=== PATIENT | female | born 1955 | race Caucasian/White ===

== ENCOUNTER 2020-10-02 09:41 | Inpatient (IN) ==
[2020-10-02] MEDS ORDERED: NS 0.9% 1000 ml BAG 1,000 ML IV ONE ×2 (10:36→12:07)
[2020-10-02] MEDS ORDERED: Morphine 4 MG/ML VIAL (1 ml) IV ONE (11:08)
[2020-10-02 11:11] LABS: ABS Lymphocytes 0.6 10^3/ul (1.0-4.8); ABS Monocytes 0.3 10^3/ul (0-0.8); ABS Neutrophils 9.2 10^3/ul (1.5-7.7); Eosinophil % 0.3 %; Hematocrit 38 % (35-47); Hemoglobin 12.9 g/dL (12.0-16.0); Mean Corpuscular HGB Conc 35 g/dL (31-36); Mean Corpuscular Hemoglobin 32 pg (27-31); Mean Corpuscular Volume 92 fL (80-97); Mean Platelet Volume 7.2 fL (7.4-10.4); Nucleated Red Blood Cells % 0.1; Platelet Count 187 10^3/uL (150-450); Red Cell Distribution Width 13 % (10-15); White Blood Count 10.1 10^3/uL (3.5-10.8)
[2020-10-02 11:26] LABS: Activated Partial Thrombo Time 26.3 seconds (26.0-38.0); INR 1.03 (0.82-1.09)
[2020-10-02 11:59] LABS: Albumin 3.8 g/dL (3.2-5.2); Albumin/Globulin Ratio 1.5 (1-3); Calcium 8.8 mg/dL (8.6-10.3); EGFR African American 98.1 (>60); Globulin 2.6 g/dL (2-4); Magnesium 1.4 mg/dL (1.9-2.7); Potassium 4.2 mmol/L (3.5-5.0); Total Bilirubin 0.6 mg/dL (0.2-1.0); Total Protein 6.4 g/dL (6.4-8.9)
[2020-10-02] MEDS ORDERED: Magnesium Sulfate 2 gm BAG 2 GM/50 ML BAG IVPB ONE (12:07)
[2020-10-02] MEDS ORDERED: Dextrose 50% Syringe 50 ml 25 GM/50 ML SYRINGE IV PUSH PRN (13:09)
[2020-10-02] MEDS ORDERED: Senna TAB 8.6 mg TAB PO PRN (13:11)
[2020-10-02] MEDS ORDERED: Polyethylene Glycol 3350 17 GM PACKET PO PRN (13:11)
[2020-10-02] MEDS: oxyCODONE/Acetamin 5/325 mg TAB PO PRN (17:44)
[2020-10-02] MEDS: Insulin GLARGINE 100 un/ml 10 ml VIAL SUBCUT SCH (20:50)
[2020-10-03] MEDS: oxyCODONE/Acetamin 5/325 mg TAB PO PRN ×2 (01:41→20:49)
[2020-10-03 05:39] LABS: Hematocrit 35 % (35-47); Hemoglobin 12.5 g/dL (12.0-16.0); Mean Corpuscular HGB Conc 35 g/dL (31-36); Mean Corpuscular Hemoglobin 32 pg (27-31); Mean Corpuscular Volume 91 fL (80-97); Mean Platelet Volume 7.3 fL (7.4-10.4); Platelet Count 163 10^3/uL (150-450); Red Blood Count 3.87 10^6 /uL (3.70-4.87); Red Cell Distribution Width 13 % (10-15); White Blood Count 9.9 10^3/uL (3.5-10.8)
[2020-10-03 05:44] LABS: INR 1.08 (0.82-1.09)
[2020-10-03 05:50] LABS: Calcium 8.4 mg/dL (8.6-10.3); Magnesium 1.6 mg/dL (1.9-2.7); Potassium 3.7 mmol/L (3.5-5.0)
[2020-10-03] MEDS ORDERED: Buffered Lidocaine 1% SYRIN 1 ml INTRADERM ONE (06:00)
[2020-10-03] MEDS: Lactated Ringers 1000 ml BAG 1,000 ML IV SCH ×2 (06:27→20:29)
[2020-10-03] MEDS ORDERED: fentaNYL 100 mcg/2 ml 50 MCG/ML VIAL ONE (07:30)
[2020-10-03] MEDS ORDERED: Ondansetron 4 mg VIAL 2 MG/ML 2 ml VIAL ONE (07:30)
[2020-10-03] MEDS ORDERED: Propofol 10 MG/ML 20 ML BTL ONE (07:30)
[2020-10-03] MEDS ORDERED: Glycopyrrolate IV 0.2 MG/ML 1 ML VIAL ONE (07:30)
[2020-10-03] MEDS ORDERED: Midazolam 2 mg/2 ml VIAL 1 mg/ml 2 ml VIAL (2 mg) ONE (07:30)
[2020-10-03] MEDS ORDERED: Phenylephrine IV 10 MG/ML 1 ml VIAL ONE (07:31)
[2020-10-03] MEDS ORDERED: Lidocaine 2% PF 5 ML VIAL ONE (07:33)
[2020-10-03] MEDS ORDERED: Bupivacaine 0.5% SDV PF 30ML VIAL ONE (08:07)
[2020-10-03] MEDS ORDERED: Lidocaine 1% w EPI 1:100,000 MDV 20 ML VIAL ONE (08:07)
[2020-10-03] MEDS ORDERED: Naloxone 0.4 mg VIAL 0.4 mg/ml 1 ml VIAL IV PRN (08:12)
[2020-10-03] MEDS ORDERED: Prochlorperazine 5 mg/ml 2 ml VIAL (10 mg) IV PRN (08:12)
[2020-10-03] MEDS ORDERED: diPHENhydraMINE IV 50 MG/ML 1 ml VIAL (BENADRYL) IV PRN (08:12)
[2020-10-03] MEDS ORDERED: ceFAZolin 2 GM PREMIX 2 GM/50 ML BAG ONE (08:15)
[2020-10-03] MEDS ORDERED: HYDROmorphone 0.5 MG/0.5 ML SYRINGE ONE (08:29)
[2020-10-03] MEDS ORDERED: HYDROmorphone 1 MG/1 ML SYRINGE IV PRN (08:30)
[2020-10-03] MEDS ORDERED: Rocuronium 50 mg VIAL 10 mg/ml 5 ml VIAL (50 mg) ONE (08:52)
[2020-10-03] MEDS ORDERED: Acetaminophen IV 1 GM/100ML 100 ML ONE (09:30)
[2020-10-03] MEDS ORDERED: Enoxaparin 40 MG/0.4 ML SYR SUBCUT SCH (13:00)
[2020-10-03] MEDS: Insulin GLARGINE 100 un/ml 10 ml VIAL SUBCUT SCH ×2 (13:55→21:21)
[2020-10-03] MEDS: ceFAZolin 1 GM X 3 DOSES POST-OP Q8H (AddVan) IVPB SCH (16:46)
[2020-10-03] MEDS: Enoxaparin 40 MG/0.4 ML SYR SUBCUT SCH (20:50)
[2020-10-04] MEDS: ceFAZolin 1 GM X 3 DOSES POST-OP Q8H (AddVan) IVPB SCH ×2 (01:41→08:47)
[2020-10-04] MEDS: Lactated Ringers 1000 ml BAG 1,000 ML IV SCH (04:41)
[2020-10-04 05:17] LABS: Hematocrit 30 % (35-47); Hemoglobin 10.4 g/dL (12.0-16.0)
[2020-10-04 05:35] LABS: EGFR African American 128.4 (>60); EGFR Non-African American 106.1 (>60); Potassium 3.9 mmol/L (3.5-5.0)
[2020-10-04] MEDS: Insulin GLARGINE 100 un/ml 10 ml VIAL SUBCUT SCH (08:45)
[2020-10-04] MEDS ORDERED: Insulin GLARGINE 100 un/ml 10 ml VIAL SUBCUT SCH (21:00)
[2020-10-04] MEDS: Enoxaparin 40 MG/0.4 ML SYR SUBCUT SCH (21:04)
[2020-10-05] MEDS ORDERED: Insulin GLARGINE 100 un/ml 10 ml VIAL SUBCUT SCH (09:00)
[2020-10-05 11:11] VITALS: BP 122/68
[2020-10-05 14:28] LABS: Urine Appearance Clear; Urine Bilirubin Negative (Negative); Urine Blood 1+ (Negative); Urine Color Yellow; Urine Glucose 3+(>=500 mg/dL) (Negative); Urine Ketones 1+ (Negative); Urine Nitrite Negative (Negative); Urine Protein Negative (Negative); Urine Specific Gravity 1.022 (1.002-1.030); Urine Urobilinogen Negative (Negative)
[2020-10-05 15:09] LABS: Urine Bacteria Absent (Absent); Urine Red Blood Cell Trace(0-2/hpf) (Absent); Urine Squamous Epithelial Cell Present (Absent); Urine White Blood Cell Trace(0-5/hpf) (Absent)
[2020-10-06] MEDS ORDERED: Scopolamine PATCH Remove NOTE PATCH OFF ONE ×2 (06:00→08:31)
== END 2020-10-05 13:57 | DRG 522 ==
LOC: ED 09:41 → SSU 13:05
PROVIDERS: ADMIT Hospitalist; ATTEND Internal Medicine

== ENCOUNTER 2020-10-05 15:39 | Inpatient (IN) ==
[2020-10-05] MEDS ORDERED: Dextrose 50% Syringe 50 ml 25 GM/50 ML SYRINGE IV PUSH PRN (17:55)
[2020-10-05] MEDS: Insulin GLARGINE 100 un/ml 10 ml VIAL SUBCUT SCH (21:31)
[2020-10-05] MEDS: Enoxaparin 40 MG/0.4 ML SYR SUBCUT SCH (21:33)
[2020-10-06 06:36] LABS: ABS Eosinophils 0.1 10^3/ul (0-0.6); ABS Lymphocytes 0.7 10^3/ul (1.0-4.8); ABS Monocytes 0.7 10^3/ul (0-0.8); ABS Neutrophils 6.9 10^3/ul (1.5-7.7); Eosinophil % 0.9 %; Hematocrit 27 % (35-47); Hemoglobin 9.3 g/dL (12.0-16.0); Lymphocyte % 8.1 %; Mean Corpuscular HGB Conc 35 g/dL (31-36); Mean Corpuscular Hemoglobin 32 pg (27-31); Mean Corpuscular Volume 92 fL (80-97); Mean Platelet Volume 8.1 fL (7.4-10.4); Platelet Count 141 10^3/uL (150-450); Red Cell Distribution Width 13 % (10-15); White Blood Count 8.3 10^3/uL (3.5-10.8)
[2020-10-06 06:52] LABS: Albumin/Globulin Ratio 1.1 (1-3); Calcium 8.4 mg/dL (8.6-10.3); EGFR African American 133.8 (>60); EGFR Non-African American 110.6 (>60); Globulin 2.7 g/dL (2-4); Potassium 3.6 mmol/L (3.5-5.0); Total Bilirubin 0.7 mg/dL (0.2-1.0); Total Protein 5.7 g/dL (6.4-8.9)
[2020-10-06] MEDS: Insulin GLARGINE 100 un/ml 10 ml VIAL SUBCUT SCH ×2 (08:10→21:50)
[2020-10-06] MEDS: diPHENhydraMINE 25 mg TAB PO SCH (20:47)
[2020-10-06] MEDS: HYDROcodone/ACETAMIN 5/325 mg TAB PO PRN (20:48)
[2020-10-06] MEDS: Enoxaparin 40 MG/0.4 ML SYR SUBCUT SCH (21:45)
[2020-10-07] MEDS: Insulin GLARGINE 100 un/ml 10 ml VIAL SUBCUT SCH ×2 (08:15→21:56)
[2020-10-07] MEDS: HYDROcodone/ACETAMIN 5/325 mg TAB PO PRN ×3 (08:16→19:46)
[2020-10-07] MEDS: diPHENhydraMINE 25 mg TAB PO SCH (21:56)
[2020-10-07] MEDS: Enoxaparin 40 MG/0.4 ML SYR SUBCUT SCH (21:57)
[2020-10-08] MEDS: HYDROcodone/ACETAMIN 5/325 mg TAB PO PRN ×5 (01:59→21:34)
[2020-10-08] MEDS: Insulin GLARGINE 100 un/ml 10 ml VIAL SUBCUT SCH ×2 (10:04→20:46)
[2020-10-08] MEDS: diPHENhydraMINE 25 mg TAB PO SCH (20:45)
[2020-10-08] MEDS: Enoxaparin 40 MG/0.4 ML SYR SUBCUT SCH (20:45)
[2020-10-09] MEDS: HYDROcodone/ACETAMIN 5/325 mg TAB PO PRN ×3 (03:20→18:17)
[2020-10-09] MEDS: Insulin GLARGINE 100 un/ml 10 ml VIAL SUBCUT SCH ×2 (08:50→21:58)
[2020-10-09] MEDS: diPHENhydraMINE 25 mg TAB PO SCH (21:51)
[2020-10-09] MEDS: Enoxaparin 40 MG/0.4 ML SYR SUBCUT SCH (21:56)
[2020-10-10] MEDS: HYDROcodone/ACETAMIN 5/325 mg TAB PO PRN (00:04)
[2020-10-10] MEDS: Insulin GLARGINE 100 un/ml 10 ml VIAL SUBCUT SCH ×2 (08:15→21:27)
[2020-10-10] MEDS: diPHENhydraMINE 25 mg TAB PO SCH (21:26)
[2020-10-10] MEDS: Enoxaparin 40 MG/0.4 ML SYR SUBCUT SCH (21:27)
[2020-10-11 03:23] LABS: Urine Appearance Cloudy; Urine Bilirubin Negative (Negative); Urine Blood 1+ (Negative); Urine Color Yellow; Urine Glucose Negative (Negative); Urine Ketones Negative (Negative); Urine Nitrite Negative (Negative); Urine Protein Negative (Negative); Urine Specific Gravity 1.006 (1.002-1.030); Urine Urobilinogen Negative (Negative)
[2020-10-11 03:30] LABS: Urine Bacteria 1+ (Absent); Urine Red Blood Cell Absent (Absent); Urine White Blood Cell Trace(0-5/hpf) (Absent)
[2020-10-11] MEDS: Insulin GLARGINE 100 un/ml 10 ml VIAL SUBCUT SCH ×2 (08:27→21:28)
[2020-10-11] MEDS: Enoxaparin 40 MG/0.4 ML SYR SUBCUT SCH (21:27)
[2020-10-11] MEDS: diPHENhydraMINE 25 mg TAB PO SCH (21:32)
[2020-10-12] MEDS: Insulin GLARGINE 100 un/ml 10 ml VIAL SUBCUT SCH ×2 (11:27→21:52)
[2020-10-12] MEDS: diPHENhydraMINE 25 mg TAB PO SCH (20:47)
[2020-10-12] MEDS: Enoxaparin 40 MG/0.4 ML SYR SUBCUT SCH (21:51)
[2020-10-13] MEDS: Insulin GLARGINE 100 un/ml 10 ml VIAL SUBCUT SCH ×2 (08:57→21:01)
[2020-10-13 09:42] LABS: ABS Eosinophils 0.2 10^3/ul (0-0.6); ABS Lymphocytes 0.9 10^3/ul (1.0-4.8); ABS Monocytes 0.6 10^3/ul (0-0.8); ABS Neutrophils 6.7 10^3/ul (1.5-7.7); Eosinophil % 2.3 %; Hematocrit 29 % (35-47); Hemoglobin 9.9 g/dL (12.0-16.0); Lymphocyte % 10.7 %; Mean Corpuscular HGB Conc 34 g/dL (31-36); Mean Corpuscular Hemoglobin 31 pg (27-31); Mean Corpuscular Volume 92 fL (80-97); Mean Platelet Volume 6.2 fL (7.4-10.4); Platelet Count 494 10^3/uL (150-450); Red Blood Count 3.18 10^6 /uL (3.70-4.87); Red Cell Distribution Width 14 % (10-15); White Blood Count 8.4 10^3/uL (3.5-10.8)
[2020-10-13 10:05] LABS: Albumin 3.2 g/dL (3.2-5.2); Albumin/Globulin Ratio 1.2 (1-3); Calcium 8.7 mg/dL (8.6-10.3); EGFR African American 139.7 (>60); EGFR Non-African American 115.4 (>60); Globulin 2.6 g/dL (2-4); Total Bilirubin 0.5 mg/dL (0.2-1.0); Total Protein 5.8 g/dL (6.4-8.9)
[2020-10-13] MEDS: diPHENhydraMINE 25 mg TAB PO SCH (20:59)
[2020-10-13] MEDS: Enoxaparin 40 MG/0.4 ML SYR SUBCUT SCH (21:01)
[2020-10-14] MEDS: Insulin GLARGINE 100 un/ml 10 ml VIAL SUBCUT SCH ×2 (10:31→21:00)
[2020-10-14] MEDS: Morphine ORAL.SOLN 10 mg 2 mg/ml UDC 5 ml (10 mg) PO PRN ×2 (16:32→20:35)
[2020-10-14] MEDS: diPHENhydraMINE 25 mg TAB PO SCH (20:24)
[2020-10-14] MEDS: Enoxaparin 40 MG/0.4 ML SYR SUBCUT SCH (20:34)
[2020-10-15] MEDS: Insulin GLARGINE 100 un/ml 10 ml VIAL SUBCUT SCH ×2 (09:16→20:49)
[2020-10-15] MEDS: Morphine ORAL.SOLN 10 mg 2 mg/ml UDC 5 ml (10 mg) PO PRN (14:33)
[2020-10-15] MEDS: diPHENhydraMINE 25 mg TAB PO SCH (20:48)
[2020-10-15] MEDS: Enoxaparin 40 MG/0.4 ML SYR SUBCUT SCH (20:50)
[2020-10-16] MEDS: Morphine ORAL.SOLN 10 mg 2 mg/ml UDC 5 ml (10 mg) PO PRN (09:10)
[2020-10-16] MEDS: Insulin GLARGINE 100 un/ml 10 ml VIAL SUBCUT SCH ×2 (12:24→21:39)
[2020-10-16] MEDS ORDERED: Cyanocobalamin INJ 1,000 MCG/ML VIAL 1 ML VIAL IM SCH (14:00)
[2020-10-16] MEDS: diPHENhydraMINE 25 mg TAB PO SCH (21:11)
[2020-10-16] MEDS: Enoxaparin 40 MG/0.4 ML SYR SUBCUT SCH (21:11)
[2020-10-17] MEDS: Morphine ORAL.SOLN 10 mg 2 mg/ml UDC 5 ml (10 mg) PO PRN ×3 (01:19→16:54)
[2020-10-17] MEDS: Insulin GLARGINE 100 un/ml 10 ml VIAL SUBCUT SCH ×2 (08:09→21:21)
[2020-10-17] MEDS ORDERED: Morphine ER 15 mg TAB ** extended release PO ONE (11:14)
[2020-10-17 14:05] LABS: Urine Appearance Clear; Urine Bilirubin Negative (Negative); Urine Blood Negative (Negative); Urine Color Yellow; Urine Glucose Negative (Negative); Urine Ketones Negative (Negative); Urine Nitrite Negative (Negative); Urine Protein Negative (Negative); Urine Specific Gravity 1.016 (1.002-1.030); Urine Urobilinogen Positive (Negative)
[2020-10-17] MEDS: diPHENhydraMINE 25 mg TAB PO SCH (20:38)
[2020-10-17] MEDS: Morphine ER 15 mg TAB ** extended release PO SCH (20:39)
[2020-10-18] MEDS: Morphine ORAL.SOLN 10 mg 2 mg/ml UDC 5 ml (10 mg) PO PRN ×4 (00:52→21:17)
[2020-10-18] MEDS: Morphine ER 15 mg TAB ** extended release PO SCH ×2 (08:38→20:56)
[2020-10-18] MEDS: Insulin GLARGINE 100 un/ml 10 ml VIAL SUBCUT SCH ×2 (08:39→21:14)
[2020-10-18] MEDS: diPHENhydraMINE 25 mg TAB PO SCH (20:50)
[2020-10-18] MEDS: Senna TAB 8.6 mg TAB PO PRN (20:51)
[2020-10-19] MEDS: Morphine ER 15 mg TAB ** extended release PO SCH ×2 (07:32→21:52)
[2020-10-19] MEDS: Insulin GLARGINE 100 un/ml 10 ml VIAL SUBCUT SCH ×2 (08:43→22:06)
[2020-10-19] MEDS: Senna TAB 8.6 mg TAB PO PRN (21:54)
[2020-10-19] MEDS: diPHENhydraMINE 25 mg TAB PO SCH (21:54)
[2020-10-20] MEDS: Morphine ER 15 mg TAB ** extended release PO SCH ×2 (08:24→19:47)
[2020-10-20] MEDS: Insulin GLARGINE 100 un/ml 10 ml VIAL SUBCUT SCH ×2 (08:25→21:59)
[2020-10-20] MEDS: Morphine ORAL.SOLN 10 mg 2 mg/ml UDC 5 ml (10 mg) PO PRN (18:38)
[2020-10-20] MEDS: Magnesium Hydroxide LIQ 30 ML UDC PO PRN (19:46)
[2020-10-20] MEDS: Senna TAB 8.6 mg TAB PO PRN (22:07)
[2020-10-20] MEDS: diPHENhydraMINE 25 mg TAB PO SCH (22:07)
[2020-10-21] MEDS: Morphine ER 15 mg TAB ** extended release PO SCH (08:09)
[2020-10-21] MEDS: Insulin GLARGINE 100 un/ml 10 ml VIAL SUBCUT SCH ×2 (08:10→21:23)
[2020-10-21] MEDS: D5NS 0.9% 1000 ml BAG 1,000 ML IV SCH (14:00)
[2020-10-21] MEDS: Magnesium Hydroxide LIQ 30 ML UDC PO PRN (19:51)
[2020-10-21 20:11] LABS: Urine Appearance Cloudy; Urine Bilirubin Negative (Negative); Urine Blood 3+ (Negative); Urine Color Amber; Urine Glucose Negative (Negative); Urine Ketones 1+ (Negative); Urine Nitrite Positive (Negative); Urine Protein 2+(100 mg/dL) (Negative); Urine Specific Gravity 1.024 (1.002-1.030); Urine Urobilinogen Positive (Negative)
[2020-10-21 20:14] LABS: Urine Bacteria Absent (Absent); Urine Red Blood Cell 3+(>10/hpf) (Absent); Urine White Blood Cell 3+(>20/hpf) (Absent)
[2020-10-21] MEDS: Senna TAB 8.6 mg TAB PO PRN (21:21)
[2020-10-21] MEDS: diPHENhydraMINE 25 mg TAB PO SCH (22:50)
[2020-10-22] MEDS: D5NS 0.9% 1000 ml BAG 1,000 ML IV SCH (02:51)
[2020-10-22 05:03] LABS: ABS Lymphocytes 0.4 10^3/ul (1.0-4.8); ABS Monocytes 0.5 10^3/ul (0-0.8); ABS Neutrophils 8.9 10^3/ul (1.5-7.7); Eosinophil % 0.4 %; Hematocrit 29 % (35-47); Hemoglobin 9.8 g/dL (12.0-16.0); Lymphocyte % 3.7 %; Mean Corpuscular HGB Conc 34 g/dL (31-36); Mean Corpuscular Hemoglobin 31 pg (27-31); Mean Corpuscular Volume 90 fL (80-97); Mean Platelet Volume 6.3 fL (7.4-10.4); Platelet Count 402 10^3/uL (150-450); Red Blood Count 3.18 10^6 /uL (3.70-4.87); Red Cell Distribution Width 14 % (10-15); White Blood Count 9.9 10^3/uL (3.5-10.8)
[2020-10-22 05:20] LABS: Albumin/Globulin Ratio 1.1 (1-3); Calcium 8.3 mg/dL (8.6-10.3); EGFR African American 160.4 (>60); EGFR Non-African American 132.6 (>60); Globulin 2.7 g/dL (2-4); Potassium 4.3 mmol/L (3.5-5.0); Total Bilirubin 0.6 mg/dL (0.2-1.0); Total Protein 5.7 g/dL (6.4-8.9)
[2020-10-22] MEDS: Insulin GLARGINE 100 un/ml 10 ml VIAL SUBCUT SCH ×2 (09:45→20:49)
[2020-10-22] MEDS ORDERED: Lactulose 30 ml UDC PO PRN (17:09)
[2020-10-22] MEDS: diPHENhydraMINE 25 mg TAB PO SCH (20:48)
[2020-10-23 07:10] VITALS: BP 137/68
[2020-10-23] MEDS: Insulin GLARGINE 100 un/ml 10 ml VIAL SUBCUT SCH (09:15)
[2020-10-23] MEDS ORDERED: Sulfamethox/Trimethoprim DS TAB 800/160 mg PO ONE (14:13)
[2020-10-23] MEDS ORDERED: Sulfamethox/Trimethoprim DS TAB 800/160 mg PO SCH (21:00)
== END 2020-10-23 14:35 ==
LOC: PMRU 17:41 → UNDODISIN 10-17 15:30 → PMRU 10-21 09:40
PROVIDERS: ADMIT Physical Medicine & Rehabilitation; ATTEND Physical Medicine & Rehabilitation

== ENCOUNTER 2020-12-11 11:54 | Inpatient (IN) ==
[2020-12-11] MEDS ORDERED: Morphine 2 MG/ML SYRINGE IV PRN (12:11)
[2020-12-11] MEDS ORDERED: diPHENhydraMINE 25 mg TAB PO PRN (12:11)
[2020-12-11] MEDS ORDERED: diPHENhydraMINE IV 50 MG/ML 1 ml VIAL (BENADRYL) IV PRN (12:11)
[2020-12-11] MEDS ORDERED: Magnesium Hydroxide LIQ 30 ML UDC PO PRN (12:11)
[2020-12-11] MEDS ORDERED: oxyCODONE/Acetamin 5/325 mg TAB PO PRN (12:11)
[2020-12-11] MEDS ORDERED: Lactulose 30 ml UDC PO PRN (12:11)
[2020-12-11] MEDS ORDERED: Prochlorperazine 5 mg/ml 2 ml VIAL (10 mg) IV PRN (14:07)
[2020-12-11 15:04] LABS: ABS Eosinophils 0.1 10^3/ul (0-0.6); ABS Monocytes 0.5 10^3/ul (0-0.8); ABS Neutrophils 5.2 10^3/ul (1.5-7.7); Eosinophil % 1.1 %; Hematocrit 34 % (35-47); Hemoglobin 11.5 g/dL (12.0-16.0); Lymphocyte % 15.3 %; Mean Corpuscular HGB Conc 34 g/dL (31-36); Mean Corpuscular Hemoglobin 29 pg (27-31); Mean Corpuscular Volume 85 fL (80-97); Mean Platelet Volume 6.7 fL (7.4-10.4); Platelet Count 285 10^3/uL (150-450); Red Blood Count 3.96 10^6 /uL (3.70-4.87); Red Cell Distribution Width 14 % (10-15); White Blood Count 6.8 10^3/uL (3.5-10.8)
[2020-12-11 15:12] LABS: INR 1.19 (0.86-1.15)
[2020-12-11] MEDS ORDERED: Dextrose 50% Syringe 50 ml 25 GM/50 ML SYRINGE IV PUSH PRN (15:12)
[2020-12-11] MEDS ORDERED: CHLORHEXIDINE GLUCONATE 4% TOPICAL SCH (15:15)
[2020-12-11 15:44] LABS: ALT 5 U/L (7-52); Albumin 2.9 g/dL (3.2-5.2); Albumin/Globulin Ratio 1.4 (1-3); Alkaline Phosphatase 102 U/L (35-149); Blood Urea Nitrogen 15 mg/dL (6-24); CO2 Carbon Dioxide 24 mmol/L (22-32); Calcium 7.5 mg/dL (8.6-10.3); Chloride 102 mmol/L (101-111); EGFR Non-African American 169.4 (>60); Globulin 2.1 g/dL (2-4); Glucose 282 mg/dL (70-100); Sodium 133 mmol/L (135-145)
[2020-12-11 15:47] LABS: Anion Gap 7 mmol/L (2-11)
[2020-12-11] MEDS: Insulin GLARGINE 100 un/ml 10 ml VIAL SUBCUT SCH (22:44)
[2020-12-11] MEDS: Magnesium Hydroxide LIQ 30 ML UDC PO SCH (22:45)
[2020-12-11] MEDS: Enoxaparin 80 MG/0.8 ML SYR SUBCUT SCH (22:45)
[2020-12-12] MEDS ORDERED: Senna TAB 8.6 mg TAB PO ONE (08:41)
[2020-12-12] MEDS ORDERED: Insulin GLARGINE 100 un/ml 10 ml VIAL SUBCUT SCH (09:00)
[2020-12-12] MEDS: Vitamin THERAPEUTIC TAB PO SCH (09:10)
[2020-12-12] MEDS: Magnesium Hydroxide LIQ 30 ML UDC PO SCH ×2 (09:11→20:59)
[2020-12-12] MEDS: Enoxaparin 80 MG/0.8 ML SYR SUBCUT SCH (09:14)
[2020-12-12] MEDS ORDERED: Dextrose 50% Syringe 50 ml 25 GM/50 ML SYRINGE IV PUSH PRN (10:10)
[2020-12-12] MEDS: NS 0.9% 1000 ml BAG 1,000 ML IV SCH ×2 (10:31→22:31)
[2020-12-12 12:27] LABS: Urine Appearance Cloudy; Urine Bilirubin Negative (Negative); Urine Blood 2+ (Negative); Urine Color Yellow; Urine Glucose Negative (Negative); Urine Ketones Negative (Negative); Urine Nitrite Negative (Negative); Urine Protein Negative (Negative); Urine Urobilinogen Negative (Negative)
[2020-12-12 12:54] LABS: Urine Bacteria 1+ (Absent); Urine Red Blood Cell 3+(>10/hpf) (Absent); Urine Squamous Epithelial Cell Present (Absent); Urine White Blood Cell 3+(>20/hpf) (Absent)
[2020-12-12] MEDS: Insulin GLARGINE 100 un/ml 10 ml VIAL SUBCUT SCH (20:59)
[2020-12-12] MEDS: Polyethylene Glycol 3350 17 GM PACKET PO SCH (20:59)
[2020-12-13 06:50] LABS: ABS Eosinophils 0.2 10^3/ul (0-0.6); ABS Lymphocytes 1.1 10^3/ul (1.0-4.8); ABS Monocytes 0.3 10^3/ul (0-0.8); ABS Neutrophils 2.7 10^3/ul (1.5-7.7); Hematocrit 33 % (35-47); Hemoglobin 11.6 g/dL (12.0-16.0); Lymphocyte % 25.9 %; Mean Corpuscular HGB Conc 35 g/dL (31-36); Mean Corpuscular Hemoglobin 30 pg (27-31); Mean Corpuscular Volume 85 fL (80-97); Mean Platelet Volume 6.5 fL (7.4-10.4); Nucleated Red Blood Cells % 0.1; Platelet Count 281 10^3/uL (150-450); Red Blood Count 3.94 10^6 /uL (3.70-4.87); Red Cell Distribution Width 14 % (10-15); White Blood Count 4.4 10^3/uL (3.5-10.8)
[2020-12-13] MEDS ORDERED: ceFAZolin 2 GM in NS PREMIX 2 GM/100 ML BAG IVPB ONE (08:00)
[2020-12-13] MEDS: Polyethylene Glycol 3350 17 GM PACKET PO SCH ×2 (08:48→21:45)
[2020-12-13] MEDS: Magnesium Hydroxide LIQ 30 ML UDC PO SCH ×2 (08:48→21:45)
[2020-12-13] MEDS: Vitamin THERAPEUTIC TAB PO SCH (08:48)
[2020-12-13 11:53] LABS: Calcium 8.8 mg/dL (8.6-10.3); Potassium 3.9 mmol/L (3.5-5.0)
[2020-12-13 11:59] LABS: EGFR African American 168.7 (>60); EGFR Non-African American 139.4 (>60)
[2020-12-13] MEDS ORDERED: fentaNYL 100 mcg/2 ml 50 MCG/ML VIAL IV PRN (12:51)
[2020-12-13] MEDS ORDERED: Naloxone 0.4 mg VIAL 0.4 mg/ml 1 ml VIAL IV PRN (12:51)
[2020-12-13] MEDS ORDERED: Prochlorperazine 5 mg/ml 2 ml VIAL (10 mg) IV PRN (12:51)
[2020-12-13 14:11] LABS: Hematocrit 27 % (35-47); Hemoglobin 8.7 g/dL (12.0-16.0); Mean Corpuscular HGB Conc 33 g/dL (31-36); Mean Corpuscular Hemoglobin 29 pg (27-31); Mean Corpuscular Volume 89 fL (80-97); Mean Platelet Volume 7.2 fL (7.4-10.4); Platelet Count 187 10^3/uL (150-450); Red Blood Count 2.97 10^6 /uL (3.70-4.87); Red Cell Distribution Width 14 % (10-15); White Blood Count 19.2 10^3/uL (3.5-10.8)
[2020-12-13 14:43] LABS: INR 1.28 (0.86-1.15)
[2020-12-13 14:47] LABS: Activated Partial Thrombo Time 21.6 seconds (26.0-38.0)
[2020-12-13] MEDS ORDERED: Phenylephrine IV 50 MG in NS 0.9% 250 ml 245 ML IV PRN (15:59)
[2020-12-13] MEDS ORDERED: Norepinephrine 16MCG/ML IVPRE 4,000 MCG/250 ML BAG IV SCH (17:00)
[2020-12-13] MEDS ORDERED: Furosemide 20 mg/2 ml IV VIAL IV SLOW PU ONE (17:14)
[2020-12-13] MEDS ORDERED: Calcium Gluconate 2 GM in NS 0.9% 100 ml BAG 100 ML IV ONE (17:14)
[2020-12-13 17:26] LABS: Hematocrit 32 % (35-47); Hemoglobin 10.8 g/dL (12.0-16.0)
[2020-12-13 17:30] LABS: Platelet Count 249 10^3/ul (150-450)
[2020-12-13 17:40] LABS: Calcium 7.1 mg/dL (8.6-10.3); EGFR African American 160.4 (>60); EGFR Non-African American 132.6 (>60); Potassium 4.5 mmol/L (3.5-5.0)
[2020-12-13 17:46] LABS: Activated Partial Thrombo Time 27.1 seconds (26.0-38.0); Fibrinogen 168.9 mg/dL (110.8-404.3); INR 1.13 (0.86-1.15)
[2020-12-13 17:58] LABS: Schistocytes ABSENT
[2020-12-13] MEDS ORDERED: diPHENhydraMINE IV 50 MG/ML 1 ml VIAL (BENADRYL) IV PRN (18:15)
[2020-12-13] MEDS ORDERED: Magnesium Hydroxide LIQ 30 ML UDC PO PRN (18:15)
[2020-12-13] MEDS ORDERED: Ondansetron ODT 4 mg TAB 4 MG TAB PO PRN (18:15)
[2020-12-13] MEDS ORDERED: diPHENhydraMINE 25 mg TAB PO PRN (18:15)
[2020-12-13] MEDS ORDERED: Lactulose 30 ml UDC PO PRN (18:15)
[2020-12-13] MEDS ORDERED: Ondansetron 4 mg VIAL 2 MG/ML 2 ml VIAL IV PRN (18:15)
[2020-12-13] MEDS ORDERED: ceFAZolin 1 GM X 3 DOSES POST-OP Q8H (AddVan) IVPB SCH (18:30)
[2020-12-13] MEDS ORDERED: ceFAZolin 1 GM ADVAN 1 GM in NS 0.9% 50 ML 50 ML IVPB SCH (19:00)
[2020-12-13] MEDS: Lactated Ringers 1000 ml BAG 1,000 ML IV SCH (19:54)
[2020-12-13] MEDS: ceFAZolin 1 GM Q8H (ADVAN) IVPB SCH (20:17)
[2020-12-13] MEDS: Insulin GLARGINE 100 un/ml 10 ml VIAL SUBCUT SCH (20:33)
[2020-12-14 02:37] LABS: Hematocrit 27 % (35-47); Hemoglobin 9.2 g/dL (12.0-16.0)
[2020-12-14] MEDS: ceFAZolin 1 GM Q8H (ADVAN) IVPB SCH ×3 (03:21→21:00)
[2020-12-14 05:33] LABS: ABS Lymphocytes 1.3 10^3/ul (1.0-4.8); ABS Monocytes 1.1 10^3/ul (0-0.8); ABS Neutrophils 11.7 10^3/ul (1.5-7.7); Hematocrit 26 % (35-47); Hemoglobin 8.9 g/dL (12.0-16.0); Lymphocyte % 9.1 %; Mean Corpuscular HGB Conc 34 g/dL (31-36); Mean Corpuscular Hemoglobin 30 pg (27-31); Mean Corpuscular Volume 87 fL (80-97); Platelet Count 185 10^3/uL (150-450); Red Blood Count 2.97 10^6 /uL (3.70-4.87); Red Cell Distribution Width 14 % (10-15); White Blood Count 14.2 10^3/uL (3.5-10.8)
[2020-12-14] MEDS: Lactated Ringers 1000 ml BAG 1,000 ML IV SCH (05:40)
[2020-12-14 05:45] LABS: Calcium 7.8 mg/dL (8.6-10.3)
[2020-12-14 05:50] LABS: EGFR African American 131.1 (>60); EGFR Non-African American 108.3 (>60)
[2020-12-14] MEDS: Polyethylene Glycol 3350 17 GM PACKET PO SCH ×2 (08:15→21:51)
[2020-12-14] MEDS: Insulin GLARGINE 100 un/ml 10 ml VIAL SUBCUT SCH ×2 (08:24→22:06)
[2020-12-14] MEDS: Vitamin THERAPEUTIC TAB PO SCH (08:24)
[2020-12-14] MEDS: Magnesium Hydroxide LIQ 30 ML UDC PO SCH ×2 (08:25→21:51)
[2020-12-14 19:30] LABS: Hematocrit 22 % (35-47); Hemoglobin 7.8 g/dL (12.0-16.0)
[2020-12-15] MEDS: Lactated Ringers 1000 ml BAG 1,000 ML IV SCH (01:47)
[2020-12-15] MEDS: ceFAZolin 1 GM Q8H (ADVAN) IVPB SCH ×3 (04:33→19:37)
[2020-12-15 06:21] LABS: Hematocrit 21 % (35-47); Hemoglobin 7.4 g/dL (12.0-16.0); Mean Platelet Volume 7.1 fL (7.4-10.4); Platelet Count 158 10^3/uL (150-450)
[2020-12-15] MEDS: Vitamin THERAPEUTIC TAB PO SCH (08:44)
[2020-12-15] MEDS: Polyethylene Glycol 3350 17 GM PACKET PO SCH ×2 (08:45→22:15)
[2020-12-15] MEDS: Insulin GLARGINE 100 un/ml 10 ml VIAL SUBCUT SCH ×2 (08:45→22:14)
[2020-12-15] MEDS: Magnesium Hydroxide LIQ 30 ML UDC PO SCH ×2 (08:46→22:15)
[2020-12-15] MEDS: Iron Sucrose 200 MG in NS 0.9% 100 ml BAG 100 ML IVPB SCH (11:24)
[2020-12-16] MEDS: ceFAZolin 1 GM Q8H (ADVAN) IVPB SCH ×2 (03:59→12:52)
[2020-12-16 06:14] LABS: Hematocrit 21 % (35-47); Hemoglobin 7.4 g/dL (12.0-16.0); Mean Platelet Volume 6.9 fL (7.4-10.4); Platelet Count 187 10^3/uL (150-450)
[2020-12-16] MEDS: Polyethylene Glycol 3350 17 GM PACKET PO SCH ×2 (09:03→22:21)
[2020-12-16] MEDS: Magnesium Hydroxide LIQ 30 ML UDC PO SCH ×2 (09:03→22:21)
[2020-12-16] MEDS: Insulin GLARGINE 100 un/ml 10 ml VIAL SUBCUT SCH ×2 (09:05→22:20)
[2020-12-16] MEDS: Vitamin THERAPEUTIC TAB PO SCH (09:06)
[2020-12-16] MEDS: Iron Sucrose 200 MG in NS 0.9% 100 ml BAG 100 ML IVPB SCH (09:07)
[2020-12-17 07:38] LABS: Hematocrit 22 % (35-47); Hemoglobin 7.8 g/dL (12.0-16.0); Mean Platelet Volume 7.1 fL (7.4-10.4); Platelet Count 244 10^3/uL (150-450)
[2020-12-17 07:53] LABS: Anion Gap 2 mmol/L (2-11); Blood Urea Nitrogen 9 mg/dL (6-24); CO2 Carbon Dioxide 28 mmol/L (22-32); Calcium 7.5 mg/dL (8.6-10.3); Chloride 103 mmol/L (101-111); EGFR African American 269.3 (>60); EGFR Non-African American 222.6 (>60); Glucose 130 mg/dL (70-100); Potassium 3.6 mmol/L (3.5-5.0); Sodium 133 mmol/L (135-145)
[2020-12-17] MEDS: Insulin GLARGINE 100 un/ml 10 ml VIAL SUBCUT SCH ×2 (08:41→21:28)
[2020-12-17] MEDS: Vitamin THERAPEUTIC TAB PO SCH (08:41)
[2020-12-17] MEDS: Polyethylene Glycol 3350 17 GM PACKET PO SCH ×2 (08:42→21:22)
[2020-12-17] MEDS: Magnesium Hydroxide LIQ 30 ML UDC PO SCH ×2 (08:42→21:22)
[2020-12-17] MEDS: Iron Sucrose 200 MG in NS 0.9% 100 ml BAG 100 ML IVPB SCH (08:47)
[2020-12-17 09:30] LABS: Rapid COVID-19 Molecular Undetected (Undetected)
[2020-12-17 20:47] LABS: Urine Appearance Clear; Urine Bilirubin Negative (Negative); Urine Blood 3+ (Negative); Urine Color Yellow; Urine Glucose Negative (Negative); Urine Ketones Negative (Negative); Urine Nitrite Negative (Negative); Urine Protein 1+(30 mg/dL) (Negative); Urine Specific Gravity 1.005 (1.002-1.030); Urine Urobilinogen Negative (Negative)
[2020-12-17 21:31] LABS: Urine Bacteria 1+ (Absent); Urine Red Blood Cell 2+(6-10/hpf) (Absent); Urine White Blood Cell 1+(6-10/hpf) (Absent)
[2020-12-18 06:40] LABS: Hematocrit 25 % (35-47); Hemoglobin 8.7 g/dL (12.0-16.0); Mean Platelet Volume 6.7 fL (7.4-10.4); Platelet Count 341 10^3/uL (150-450)
[2020-12-18 07:21] VITALS: BP 157/74
[2020-12-18] MEDS: Polyethylene Glycol 3350 17 GM PACKET PO SCH (07:43)
[2020-12-18] MEDS: Vitamin THERAPEUTIC TAB PO SCH (09:04)
[2020-12-18] MEDS: Insulin GLARGINE 100 un/ml 10 ml VIAL SUBCUT SCH (09:04)
[2020-12-18] MEDS: Magnesium Hydroxide LIQ 30 ML UDC PO SCH (09:04)
== END 2020-12-18 11:15 | DRG 466 ==
LOC: ED 11:54 → SSU 12:11 → ICU 12-13 17:47 → SSU 12-14 15:32
PROVIDERS: ADMIT Orthopaedic Surgery Adult Reconstructive Orthopaedic Surgery; ATTEND Orthopaedic Surgery Adult Reconstructive Orthopaedic Surgery

== ENCOUNTER 2021-07-22 17:15 | Inpatient (IN) ==
[2021-07-22 18:46] LABS: ABS Lymphocytes 0.7 10^3/ul (1.0-4.8); ABS Monocytes 0.5 10^3/ul (0-0.8); Eosinophil % 0.5 %; Hematocrit 40 % (35-47); Hemoglobin 13.8 g/dL (12.0-16.0); Lymphocyte % 6.9 %; Mean Corpuscular HGB Conc 34 g/dL (31-36); Mean Corpuscular Hemoglobin 31 pg (27-31); Mean Corpuscular Volume 90 fL (80-97); Mean Platelet Volume 6.9 fL (7.4-10.4); Platelet Count 244 10^3/uL (150-450); Red Blood Count 4.46 10^6 /uL (3.70-4.87); Red Cell Distribution Width 14 % (10-15); White Blood Count 10.3 10^3/uL (3.5-10.8)
[2021-07-22] MEDS ORDERED: cefTRIAXone 1 gm/50 mL NS BAG 1 GM/50 ML BAG IV ONE (18:48)
[2021-07-22] MEDS ORDERED: Azithromycin 500 mg/250 ml NS 500 MG/250 ML BAG IVPB ONE (18:48)
[2021-07-22 19:31] LABS: Albumin 4.4 g/dL (3.2-5.2); Albumin/Globulin Ratio 1.7 (1-3); C Reactive Protein 3.89 mg/L (<8.01); Calcium 9.3 mg/dL (8.6-10.3); Globulin 2.6 g/dL (2-4); Potassium 4.2 mmol/L (3.5-5.0); Total Bilirubin 0.8 mg/dL (0.2-1.0); eGFR CKD-EPI 101.9 (>60)
[2021-07-22 20:17] LABS: High Sensitivity Troponin 1 Hr 73 pg/mL (<15)
[2021-07-22] MEDS ORDERED: Piperacillin/Tazobac ADVAN 3.375 GM in NS 0.9% 100 ml BAG 100 ML IV ONE (22:10)
[2021-07-22] MEDS ORDERED: Zosyn per Pharmacy NOTE FOLLOW UP SCH (23:00)
[2021-07-23] MEDS: Enoxaparin 40 MG/0.4 ML SYR SUBCUT SCH ×2 (02:10→20:55)
[2021-07-23] MEDS ORDERED: Dextrose 50% Syringe 50 ml 25 GM/50 ML SYRINGE IV PUSH PRN ×2 (02:35→17:41)
[2021-07-23] MEDS: ZOSYN 3.375 GM Q8H per EXTENDED INFUSION IV SCH ×2 (05:50→15:45)
[2021-07-23 08:37] LABS: Hematocrit 37 % (35-47); Hemoglobin 12.5 g/dL (12.0-16.0); Mean Corpuscular HGB Conc 34 g/dL (31-36); Mean Corpuscular Hemoglobin 31 pg (27-31); Mean Corpuscular Volume 90 fL (80-97); Platelet Count 228 10^3/uL (150-450); Red Blood Count 4.05 10^6 /uL (3.70-4.87); Red Cell Distribution Width 14 % (10-15)
[2021-07-23] MEDS: Insulin GLARGINE 100 un/ml 10 ml VIAL SUBCUT SCH ×2 (08:55→20:53)
[2021-07-23] MEDS: Cholecalciferol (VIT D3) 1,000 unit TAB PO SCH (08:57)
[2021-07-23] MEDS: Calcium (OSCAL) 500 mg TAB PO SCH ×2 (08:57→20:52)
[2021-07-23] MEDS: Multivitamins/Minerals TAB PO SCH (08:57)
[2021-07-23 09:19] LABS: Calcium 8.7 mg/dL (8.6-10.3); HDL Cholesterol 60.6 mg/dL; Magnesium 1.5 mg/dL (1.9-2.7); Potassium 4.1 mmol/L (3.5-5.0); eGFR CKD-EPI 100.2 (>60)
[2021-07-23 09:31] LABS: TSH Ultra Thyroid Stim Horm 4.08 mcIU/mL (0.34-5.60)
[2021-07-23 09:33] LABS: Free T4 0.7 ng/dL (0.61-1.12)
[2021-07-23] MEDS ORDERED: Magnesium Sulf 4 GM/100 ML IV 4,000 MG/100 ML BAG IVPB ONE (13:30)
[2021-07-23] MEDS ORDERED: cefTRIAXone 1 gm/50 mL NS BAG 1 GM/50 ML BAG IVPB SCH (17:43)
[2021-07-23] MEDS: Furosemide 20 mg/2 ml IV VIAL IV SLOW PU SCH (17:43)
[2021-07-23] MEDS ORDERED: Lorazepam PYXIS KEY PRN (18:29)
[2021-07-23] MEDS ORDERED: LORazepam 2 mg VIAL 1 ml IV PUSH PRN (18:29)
[2021-07-23 20:02] LABS: Urine Appearance Clear; Urine Bilirubin Negative (Negative); Urine Blood 1+ (Negative); Urine Color Straw; Urine Glucose Negative (Negative); Urine Ketones Negative (Negative); Urine Nitrite Negative (Negative); Urine Protein Negative (Negative); Urine Specific Gravity 1.006 (1.002-1.030); Urine Urobilinogen Negative (Negative)
[2021-07-23 20:04] LABS: Urine Bacteria Absent (Absent); Urine Red Blood Cell Trace(0-2/hpf) (Absent); Urine Squamous Epithelial Cell Present (Absent); Urine White Blood Cell Absent (Absent)
[2021-07-23] MEDS: Azithromycin 500 mg/250 ml NS 500 MG/250 ML BAG IVPB SCH (20:52)
[2021-07-24] MEDS: cefTRIAXone 1 gm/50 mL NS BAG 1 GM/50 ML BAG IVPB SCH ×2 (00:38→22:26)
[2021-07-24] MEDS ORDERED: Prochlorperazine 5 mg/ml 2 ml VIAL (10 mg) IV ONE (04:55)
[2021-07-24] MEDS ORDERED: Albuterol/Ipratropium NEB.SOL (2.5/0.5 MG) 3 ML NEB.SOLN INH ONE (05:09)
[2021-07-24] MEDS ORDERED: Furosemide 20 mg/2 ml IV VIAL IV ONE (05:11)
[2021-07-24] MEDS ORDERED: Albuterol HFA INHALER 8 gm MDI INH ONE (05:23)
[2021-07-24 05:38] LABS: ABS Eosinophils 0.2 10^3/ul (0-0.6); ABS Lymphocytes 1.4 10^3/ul (1.0-4.8); ABS Monocytes 0.6 10^3/ul (0-0.8); ABS Neutrophils 5.1 10^3/ul (1.5-7.7); Eosinophil % 3.1 %; Hematocrit 36 % (35-47); Hemoglobin 12.2 g/dL (12.0-16.0); Lymphocyte % 18.5 %; Mean Corpuscular HGB Conc 34 g/dL (31-36); Mean Corpuscular Hemoglobin 31 pg (27-31); Mean Corpuscular Volume 90 fL (80-97); Mean Platelet Volume 7.1 fL (7.4-10.4); Nucleated Red Blood Cells % 0.1; Platelet Count 218 10^3/uL (150-450); Red Blood Count 3.94 10^6 /uL (3.70-4.87); Red Cell Distribution Width 14 % (10-15); White Blood Count 7.3 10^3/uL (3.5-10.8)
[2021-07-24 06:34] LABS: Calcium 8.5 mg/dL (8.6-10.3); Potassium 3.7 mmol/L (3.5-5.0); eGFR CKD-EPI 105.5 (>60)
[2021-07-24 07:23] LABS: High Sensitivity Troponin 1 Hr 89 pg/mL (<15)
[2021-07-24] MEDS ORDERED: Potassium Chlor 20 meq TAB.ER PO ONE (07:25)
[2021-07-24 08:03] LABS: Magnesium 1.8 mg/dL (1.9-2.7)
[2021-07-24] MEDS ORDERED: Magnesium Sulfate 2 gm BAG 2 GM/50 ML BAG IVPB ONE (09:12)
[2021-07-24] MEDS ORDERED: Albuterol HFA INHALER 8 gm MDI INH PRN (09:14)
[2021-07-24] MEDS: Insulin GLARGINE 100 un/ml 10 ml VIAL SUBCUT SCH ×2 (09:30→19:59)
[2021-07-24] MEDS: Cholecalciferol (VIT D3) 1,000 unit TAB PO SCH (11:22)
[2021-07-24] MEDS: Calcium (OSCAL) 500 mg TAB PO SCH ×2 (11:22→19:59)
[2021-07-24] MEDS: Multivitamins/Minerals TAB PO SCH (11:23)
[2021-07-24] MEDS: Furosemide 20 mg/2 ml IV VIAL IV SLOW PU SCH ×2 (17:32→18:25)
[2021-07-24] MEDS: Enoxaparin 40 MG/0.4 ML SYR SUBCUT SCH (20:00)
[2021-07-24] MEDS: Azithromycin 500 mg/250 ml NS 500 MG/250 ML BAG IVPB SCH (20:06)
[2021-07-25 06:23] LABS: Hematocrit 34 % (35-47); Hemoglobin 11.8 g/dL (12.0-16.0); Mean Corpuscular HGB Conc 35 g/dL (31-36); Mean Corpuscular Hemoglobin 31 pg (27-31); Mean Corpuscular Volume 90 fL (80-97); Mean Platelet Volume 7.6 fL (7.4-10.4); Platelet Count 220 10^3/uL (150-450); Red Blood Count 3.79 10^6 /uL (3.70-4.87); Red Cell Distribution Width 14 % (10-15); White Blood Count 8.7 10^3/uL (3.5-10.8)
[2021-07-25 06:45] LABS: Calcium 8.6 mg/dL (8.6-10.3); Magnesium 1.8 mg/dL (1.9-2.7); Potassium 3.9 mmol/L (3.5-5.0); eGFR CKD-EPI 103.4 (>60)
[2021-07-25] MEDS ORDERED: Magnesium Sulfate 2 gm BAG 2 GM/50 ML BAG IVPB ONE (07:42)
[2021-07-25] MEDS: Insulin GLARGINE 100 un/ml 10 ml VIAL SUBCUT SCH ×2 (08:23→20:12)
[2021-07-25] MEDS: Cholecalciferol (VIT D3) 1,000 unit TAB PO SCH (10:26)
[2021-07-25] MEDS: Calcium (OSCAL) 500 mg TAB PO SCH ×2 (10:26→20:12)
[2021-07-25] MEDS: Multivitamins/Minerals TAB PO SCH (10:28)
[2021-07-25] MEDS ORDERED: Prochlorperazine 5 mg/ml 2 ml VIAL (10 mg) IV PRN (10:31)
[2021-07-25] MEDS: Furosemide 20 mg/2 ml IV VIAL IV SLOW PU SCH (12:36)
[2021-07-25] MEDS: Enoxaparin 40 MG/0.4 ML SYR SUBCUT SCH (20:11)
[2021-07-25] MEDS ORDERED: cefTRIAXone 1 gm/50 mL NS BAG 1 GM/50 ML BAG IVPB SCH (21:00)
[2021-07-26 04:51] LABS: Hematocrit 34 % (35-47); Hemoglobin 11.7 g/dL (12.0-16.0); Mean Corpuscular HGB Conc 34 g/dL (31-36); Mean Corpuscular Hemoglobin 31 pg (27-31); Mean Corpuscular Volume 91 fL (80-97); Mean Platelet Volume 7.2 fL (7.4-10.4); Platelet Count 202 10^3/uL (150-450); Red Blood Count 3.74 10^6 /uL (3.70-4.87); Red Cell Distribution Width 14 % (10-15); White Blood Count 7.1 10^3/uL (3.5-10.8)
[2021-07-26 05:21] LABS: Calcium 8.6 mg/dL (8.6-10.3); Magnesium 1.8 mg/dL (1.9-2.7); Potassium 4.2 mmol/L (3.5-5.0)
[2021-07-26] MEDS ORDERED: Magnesium Sulfate 2 gm BAG 2 GM/50 ML BAG IVPB ONE (07:06)
[2021-07-26] MEDS: Cholecalciferol (VIT D3) 1,000 unit TAB PO SCH (08:05)
[2021-07-26] MEDS: Multivitamins/Minerals TAB PO SCH (08:05)
[2021-07-26] MEDS: Calcium (OSCAL) 500 mg TAB PO SCH (08:05)
[2021-07-26] MEDS: Insulin GLARGINE 100 un/ml 10 ml VIAL SUBCUT SCH (08:08)
[2021-07-26 11:29] VITALS: BP 140/75
== END 2021-07-26 13:00 | disposition home or self-care (01) | DRG 291 ==
LOC: ED 17:15 → EDHOLD 20:59 → SUATTDRO 20:59 → MEDTELE 07-23 00:32
PROVIDERS: ADMIT Student in an Organized Health Care Education/Training Program; ATTEND Internal Medicine

== ENCOUNTER 2022-09-17 12:23 | Inpatient (IN) ==
[2022-09-17 14:29] LABS: ABS Eosinophils 0.1 10^3/uL (0.0-0.5); ABS Lymphocytes 0.8 10^3/uL (1.0-4.8); ABS Monocytes 0.3 10^3/uL (0.0-0.9); ABS Neutrophils 10.2 10^3/uL (1.5-7.6); Eosinophil % 0.5 %; Hematocrit 36.6 % (35-45); Hemoglobin 12.6 g/dL (11.5-14.3); Lymphocyte % 7.1 %; Mean Corpuscular Hemoglobin 31.5 pg (27-33); Mean Corpuscular Hgb Conc 34.5 g/dL (31-36); Mean Corpuscular Volume 91.1 fL (80-97); Mean Platelet Volume 7.4 fL (7.5-11.2); Platelet Count 231 10^3/uL (150-450); Red Blood Count 4.01 10^6/uL (3.63-4.92); Red Cell Distribution Width 13.1 % (12-17); White Blood Count 11.4 10^3/uL (3.8-11.8)
[2022-09-17 14:35] LABS: INR 1.04 (0.88-1.18)
[2022-09-17 15:22] LABS: Calcium 8.9 mg/dL (8.6-10.3); Creatinine, Serum 0.79 mg/dL (0.51-0.95); Potassium 4.3 mmol/L (3.5-5.0); eGFR CKD-EPI 81.4 (>60)
[2022-09-17] MEDS ORDERED: NS 0.9% 1000 ml BAG 1,000 ML IV ONE (17:28)
[2022-09-17] MEDS: Insulin GLARGINE 100 un/ml 10 ml VIAL SUBCUT SCH (21:30)
[2022-09-17] MEDS: Acetaminophen IV 1 GM/100ML 1,000 MG/100 ML BAG IV SCH (21:31)
[2022-09-18] MEDS ORDERED: NS 0.9% 1000 ml BAG 1,000 ML IV SCH
[2022-09-18] MEDS: Acetaminophen IV 1 GM/100ML 1,000 MG/100 ML BAG IV SCH ×3 (04:07→22:51)
[2022-09-18 07:00] LABS: ABS Eosinophils 0.1 10^3/uL (0.0-0.5); ABS Lymphocytes 1.1 10^3/uL (1.0-4.8); ABS Monocytes 0.7 10^3/uL (0.0-0.9); ABS Neutrophils 6.8 10^3/uL (1.5-7.6); Eosinophil % 1.7 %; Hematocrit 28.1 % (35-45); Hemoglobin 9.9 g/dL (11.5-14.3); Lymphocyte % 12.9 %; Mean Corpuscular Hemoglobin 32.1 pg (27-33); Mean Corpuscular Hgb Conc 35.3 g/dL (31-36); Mean Platelet Volume 8.1 fL (7.5-11.2); Platelet Count 193 10^3/uL (150-450); Red Blood Count 3.09 10^6/uL (3.63-4.92); Red Cell Distribution Width 13.3 % (12-17); White Blood Count 8.7 10^3/uL (3.8-11.8)
[2022-09-18 07:04] LABS: INR 1.12 (0.88-1.18)
[2022-09-18 07:26] LABS: CO2 Carbon Dioxide 30 mmol/L (22-32); Calcium 7.7 mg/dL (8.6-10.3); Chloride 105 mmol/L (101-111); Sodium 138 mmol/L (135-145)
[2022-09-18 07:30] LABS: Anion Gap 3 mmol/L (2-16)
[2022-09-18 07:31] LABS: Blood Urea Nitrogen 29 mg/dL (6-24); Creatinine, Serum 0.78 mg/dL (0.51-0.95); Glucose 123 mg/dL (70-100); eGFR CKD-EPI 82.7 (>60)
[2022-09-18] MEDS: Insulin GLARGINE 100 un/ml 10 ml VIAL SUBCUT SCH ×2 (11:07→22:20)
[2022-09-18 12:23] LABS: Magnesium 1.8 mg/dL (1.9-2.7); Potassium Redraw 3.6 mmol/L (3.5-5.0)
[2022-09-18] MEDS ORDERED: Magnesium Sulfate IV 1GM/100ML 1 GM/100 ML BAG IV ONE (14:24)
[2022-09-18] MEDS ORDERED: ceFAZolin 2 GM in NS PREMIX 2 GM/100 ML BAG IVPB ONE (14:48)
[2022-09-18] MEDS ORDERED: Naloxone 0.4 mg VIAL 0.4 mg/ml 1 ml VIAL IV PRN (15:47)
[2022-09-18] MEDS ORDERED: HYDROmorphone 1 MG/1 ML SYRINGE IV PRN (15:47)
[2022-09-18] MEDS ORDERED: fentaNYL 100 mcg/2 ml 50 MCG/ML VIAL IV PRN (15:47)
[2022-09-18] MEDS ORDERED: Propofol 10 MG/ML 20 ML BTL ONE (16:02)
[2022-09-18] MEDS ORDERED: Rocuronium 50 mg VIAL 10 mg/ml 5 ml VIAL (50 mg) ONE (16:03)
[2022-09-18] MEDS ORDERED: fentaNYL 250 mcg/5 ml 50 MCG/ML 5 ml VIAL (250 MCG) ONE (16:03)
[2022-09-18] MEDS ORDERED: Midazolam 5 mg/5 ml VIAL 1 mg/ml 5 ml VIAL (5 mg) ONE (16:03)
[2022-09-18] MEDS ORDERED: HYDROmorphone 0.5 MG/0.5 ML SYRINGE ONE (17:05)
[2022-09-18] MEDS ORDERED: Bupivacaine 0.25% SDV 30 ML ONE (18:27)
[2022-09-18 19:31] LABS: Hematocrit 30.2 % (35-45); Hemoglobin 10.4 g/dL (11.5-14.3)
[2022-09-18] MEDS ORDERED: Labetalol IV 5 MG/ML 20 ml VIAL ONE (19:33)
[2022-09-18] MEDS ORDERED: Labetalol IV 5 MG/ML 20 ml VIAL IV PUSH PRN (19:35)
[2022-09-19] MEDS: ceFAZolin 1 GM X 3 DOSES POST-OP Q8H (AddVan) IVPB SCH ×3 (00:42→17:10)
[2022-09-19] MEDS: Acetaminophen IV 1 GM/100ML 1,000 MG/100 ML BAG IV SCH ×3 (05:42→20:44)
[2022-09-19] MEDS: Enoxaparin 40 MG/0.4 ML SYR SUBCUT SCH (08:29)
[2022-09-19] MEDS: Insulin GLARGINE 100 un/ml 10 ml VIAL SUBCUT SCH ×2 (08:30→23:19)
[2022-09-19 08:56] LABS: ABS Lymphocytes 0.9 10^3/uL (1.0-4.8); ABS Monocytes 0.8 10^3/uL (0.0-0.9); ABS Neutrophils 10.3 10^3/uL (1.5-7.6); Eosinophil % 0.1 %; Hematocrit 28.3 % (35-45); Hemoglobin 9.8 g/dL (11.5-14.3); Lymphocyte % 7.5 %; Mean Corpuscular Hemoglobin 31.8 pg (27-33); Mean Corpuscular Hgb Conc 34.7 g/dL (31-36); Mean Corpuscular Volume 91.6 fL (80-97); Mean Platelet Volume 7.6 fL (7.5-11.2); Platelet Count 163 10^3/uL (150-450); Red Blood Count 3.09 10^6/uL (3.63-4.92); Red Cell Distribution Width 13.6 % (12-17); White Blood Count 11.9 10^3/uL (3.8-11.8)
[2022-09-19 09:31] LABS: Calcium 7.9 mg/dL (8.6-10.3); Creatinine, Serum 0.86 mg/dL (0.51-0.95); Magnesium 1.7 mg/dL (1.9-2.7); Potassium 3.7 mmol/L (3.5-5.0); eGFR CKD-EPI 73.5 (>60)
[2022-09-19 12:24] LABS: Glucose Confirmatory 411 mg/dL (70-100)
[2022-09-19] MEDS ORDERED: Senna TAB 8.6 mg TAB PO PRN (12:48)
[2022-09-19] MEDS ORDERED: Magnesium Sulfate 2 gm BAG 2 GM/50 ML BAG IVPB ONE (12:54)
[2022-09-20 05:54] LABS: ABS Eosinophils 0.1 10^3/uL (0.0-0.5); ABS Lymphocytes 1.1 10^3/uL (1.0-4.8); ABS Monocytes 0.8 10^3/uL (0.0-0.9); ABS Neutrophils 8.1 10^3/uL (1.5-7.6); Eosinophil % 0.7 %; Hemoglobin 8.1 g/dL (11.5-14.3); Lymphocyte % 10.8 %; Mean Corpuscular Hemoglobin 31.4 pg (27-33); Mean Corpuscular Hgb Conc 35.2 g/dL (31-36); Mean Corpuscular Volume 89.1 fL (80-97); Mean Platelet Volume 7.1 fL (7.5-11.2); Platelet Count 149 10^3/uL (150-450); Red Blood Count 2.58 10^6/uL (3.63-4.92); Red Cell Distribution Width 13.2 % (12-17); White Blood Count 10.1 10^3/uL (3.8-11.8)
[2022-09-20] MEDS: Acetaminophen IV 1 GM/100ML 1,000 MG/100 ML BAG IV SCH (05:56)
[2022-09-20 06:23] LABS: Calcium 7.8 mg/dL (8.6-10.3); Creatinine, Serum 0.63 mg/dL (0.51-0.95); Potassium 3.8 mmol/L (3.5-5.0); eGFR CKD-EPI 96.6 (>60)
[2022-09-20] MEDS: Enoxaparin 40 MG/0.4 ML SYR SUBCUT SCH (11:27)
[2022-09-20] MEDS: Insulin GLARGINE 100 un/ml 10 ml VIAL SUBCUT SCH ×2 (11:30→20:32)
[2022-09-20 14:16] LABS: Hematocrit 24.8 % (35-45); Hemoglobin 8.6 g/dL (11.5-14.3)
[2022-09-21 06:18] LABS: ABS Eosinophils 0.2 10^3/uL (0.0-0.5); ABS Lymphocytes 1.1 10^3/uL (1.0-4.8); ABS Monocytes 0.7 10^3/uL (0.0-0.9); ABS Neutrophils 6.4 10^3/uL (1.5-7.6); ABS Nucleated RBC 0.01 10^3/ul; Eosinophil % 2.1 %; Hematocrit 23.3 % (35-45); Hemoglobin 8.1 g/dL (11.5-14.3); Lymphocyte % 13.4 %; Mean Corpuscular Hemoglobin 31.3 pg (27-33); Mean Corpuscular Hgb Conc 34.6 g/dL (31-36); Mean Corpuscular Volume 90.6 fL (80-97); Mean Platelet Volume 7.4 fL (7.5-11.2); Nucleated Red Blood Cells % 0.1 /100 WBC (0.0-0.4); Platelet Count 168 10^3/uL (150-450); Red Blood Count 2.57 10^6/uL (3.63-4.92); Red Cell Distribution Width 13.1 % (12-17); White Blood Count 8.4 10^3/uL (3.8-11.8)
[2022-09-21 06:43] LABS: Calcium 7.6 mg/dL (8.6-10.3); Creatinine, Serum 0.54 mg/dL (0.51-0.95); Potassium 3.9 mmol/L (3.5-5.0); eGFR CKD-EPI 100.2 (>60)
[2022-09-21] MEDS: Insulin GLARGINE 100 un/ml 10 ml VIAL SUBCUT SCH ×2 (08:03→22:46)
[2022-09-21] MEDS: Enoxaparin 40 MG/0.4 ML SYR SUBCUT SCH (08:04)
[2022-09-22] MEDS: Enoxaparin 40 MG/0.4 ML SYR SUBCUT SCH (07:48)
[2022-09-22] MEDS: Insulin GLARGINE 100 un/ml 10 ml VIAL SUBCUT SCH ×2 (08:01→21:51)
[2022-09-22] MEDS: Cholecalciferol (VIT D3) 1,000 unit TAB PO SCH (08:11)
[2022-09-22 13:10] LABS: ABS Eosinophils 0.2 10^3/uL (0.0-0.5); ABS Lymphocytes 1.1 10^3/uL (1.0-4.8); ABS Monocytes 0.5 10^3/uL (0.0-0.9); ABS Neutrophils 6.3 10^3/uL (1.5-7.6); Eosinophil % 2.2 %; Hematocrit 25.6 % (35-45); Hemoglobin 8.9 g/dL (11.5-14.3); Lymphocyte % 13.2 %; Mean Corpuscular Hemoglobin 31.6 pg (27-33); Mean Corpuscular Hgb Conc 34.9 g/dL (31-36); Mean Corpuscular Volume 90.7 fL (80-97); Platelet Count 209 10^3/uL (150-450); Red Blood Count 2.82 10^6/uL (3.63-4.92); White Blood Count 8.1 10^3/uL (3.8-11.8)
[2022-09-22 13:46] LABS: Calcium 7.7 mg/dL (8.6-10.3); Creatinine, Serum 0.61 mg/dL (0.51-0.95); Potassium 4.3 mmol/L (3.5-5.0); eGFR CKD-EPI 97.3 (>60)
[2022-09-23 06:35] LABS: ABS Eosinophils 0.3 10^3/uL (0.0-0.5); ABS Lymphocytes 1.4 10^3/uL (1.0-4.8); ABS Monocytes 0.7 10^3/uL (0.0-0.9); ABS Neutrophils 5.3 10^3/uL (1.5-7.6); Eosinophil % 4.5 %; Hematocrit 23.6 % (35-45); Hemoglobin 8.2 g/dL (11.5-14.3); Lymphocyte % 18.2 %; Mean Corpuscular Hemoglobin 31.5 pg (27-33); Mean Platelet Volume 7.2 fL (7.5-11.2); Platelet Count 242 10^3/uL (150-450); Red Blood Count 2.62 10^6/uL (3.63-4.92); Red Cell Distribution Width 12.8 % (12-17); White Blood Count 7.7 10^3/uL (3.8-11.8)
[2022-09-23 07:22] LABS: Calcium 7.8 mg/dL (8.6-10.3); Creatinine, Serum 0.64 mg/dL (0.51-0.95); Potassium 4.3 mmol/L (3.5-5.0); eGFR CKD-EPI 96.2 (>60)
[2022-09-23] MEDS: Cholecalciferol (VIT D3) 1,000 unit TAB PO SCH (10:14)
[2022-09-23] MEDS: Enoxaparin 40 MG/0.4 ML SYR SUBCUT SCH (10:15)
[2022-09-23] MEDS: Insulin GLARGINE 100 un/ml 10 ml VIAL SUBCUT SCH ×2 (10:15→22:03)
[2022-09-23 10:31] LABS: Ferritin 167.5 ng/mL (11-307)
[2022-09-24] MEDS: Cholecalciferol (VIT D3) 1,000 unit TAB PO SCH (08:57)
[2022-09-24] MEDS: Enoxaparin 40 MG/0.4 ML SYR SUBCUT SCH (09:01)
[2022-09-24] MEDS: Insulin GLARGINE 100 un/ml 10 ml VIAL SUBCUT SCH (09:01)
[2022-09-24 09:26] LABS: Rapid COVID-19 Molecular Undetected (Undetected)
[2022-09-24 11:17] VITALS: BP 142/68
== END 2022-09-24 13:50 | DRG 481 ==
LOC: ED 12:23 → EDHOLD 18:23 → SUATTDRO 18:23 → EDHOLD 09-18 14:13 → SSU 09-18 20:53
PROVIDERS: ADMIT Internal Medicine; ATTEND Internal Medicine